=== PATIENT | female | born 1985 | race Caucasian/White ===

== ENCOUNTER 2019-06-28 10:39 | Inpatient (IN) | payer OTHER ==
--- NOTE | 2019-06-26 14:26 | HP ---
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 She has a strong family h/o breast cancer and her mother also tested positive for Palb2 mutation. Here sister was treated for a triple negative breast cancer at age 35 gene negative. Bilateral breast MRI 2018 showed area of non mass enhancement in the right lower inner quadrant 5 cm FN for which MRI core bx was recommended.This was not seen on mammogram or US. Repeat breast MRI no longer showed the enhancement. mammogram and US 03/2019 benign findings. Birad 2. History Source: Patient Limitations to Obtaining History: No Limitations - Past Medical History Endocrine: Yes: Other (PCOS) - Smoking History Smoking history: Never smoked Have you smoked in the past 12 months: No - Alcohol/Substance Use Hx Alcohol Use: Yes (2 per week) Home Medications - Allergies Allergies/Adverse Reactions: Allergies Allergy/AdvReac Type Severity Reaction Status Date / Time No Known Allergies Allergy Verified 06/26/19 14:27 - Home Medications Home Medications (free text): vitamins Family Medical History Family Hx Cancer: Grandmother (maternal) (breast ca 80), Grandmother (paternal) (melanoma), Grandfather (paternal) (prostate ca), Mother (PALB2 + no cancer), Sister (breast ca triple negative 35) Other Family History: pat GGM breast ca80. mat second cousin breast ca triple - . pat GA breast ca 70. mat uncle prostate ca 60. cousin prostate ca and one with CRC 50 Physical Examination Constitutional: Yes: Well Nourished, No Distress Breast(s): Yes: Other (mildly ptotic breasts C cup no palpable densities or adenopathy bilaterally) Problem List - Problems (1) Positive test for genetic breast cancer susceptibility marker Code(s): Z15.01 - GENETIC SUSCEPTIBILITY TO MALIGNANT NEOPLASM OF BREAST Assessment/Plan Bilateral total mastectomies retroareolar biopsies implant alloderm reconstruction
[2019-06-27 15:23] VITALS: BMI 24.4
[2019-06-28] MEDS ORDERED: SCOPOLAMINE HYDROBROMIDE 1 PATCH PATCH.TD72 ONE (12:12)
[2019-06-28] MEDS ORDERED: ceFAZolin SODIUM 1 GM VIAL ONE ×2 (12:23→13:03)
[2019-06-28] MEDS ORDERED: GENTAMICIN SO4 80 MG/2 ML VIAL ONE (12:23)
[2019-06-28] MEDS ORDERED: BUPIVACAINE LIPOSOME/PF (EXPAREL) 266 MG/20 ML VIAL ONE (12:25)
[2019-06-28] MEDS ORDERED: ONDANSETRON 4 MG/2 ML VIAL IVPUSH PRN ×2 (12:51→15:22)
[2019-06-28] MEDS ORDERED: PROMETHAZINE HCL 25 MG/1 ML VIAL IVPUSH PRN (12:51)
[2019-06-28] MEDS ORDERED: LACTATED RINGERS SOLUTION 1,000 ML IV SCH (13:00)
[2019-06-28] MEDS ORDERED: MIDAZOLAM HCL 2 MG/2 ML SINGLE DOSE VIAL ONE (13:02)
[2019-06-28] MEDS ORDERED: ROCURONIUM BROMIDE 50 MG/5 ML SYRINGE ONE ×2 (13:02→14:10)
[2019-06-28] MEDS ORDERED: PROPOFOL 20 ML ONE (13:02)
[2019-06-28] MEDS ORDERED: LIDOCAINE HCL/PF 2% SDV 5ML VIAL ONE (13:04)
[2019-06-28] MEDS ORDERED: SODIUM CHLORIDE 0.9% P/F 10 ML VIAL IJ ONE (13:18)
[2019-06-28] MEDS ORDERED: BUPIVACAINE HCL/PF 0.5% (5MG/ML) 10 ML VIAL ONE (13:18)
[2019-06-28] MEDS ORDERED: DEXAMETHASONE SOD PHOSPHATE 4 MG/1 ML VIAL ONE (13:24)
[2019-06-28] MEDS ORDERED: ONDANSETRON 4 MG/2 ML VIAL ONE ×2 (13:24→16:48)
[2019-06-28] MEDS ORDERED: BUPIVACAINE HCL/PF 0.25% (2.5MG/ML) 10 ML VIAL IJ ONE (15:00)
[2019-06-28] MEDS ORDERED: BUPIVACAINE HCL/PF 0.5% (5MG/ML) 10 ML VIAL IJ ONE (15:00)
[2019-06-28] MEDS ORDERED: BUPIVACAINE LIPOSOME/PF (EXPAREL) 266 MG/20 ML VIAL NR ONE (15:00)
[2019-06-28] MEDS ORDERED: ZOLPIDEM TARTRATE 5 MG TABLET PO PRN (15:22)
[2019-06-28] MEDS ORDERED: DEXTROSE 5%-0.45% SALINE 1,000 ML IV SCH (15:30)
[2019-06-28] MEDS ORDERED: KETOROLAC TROMETHAMINE 30 MG/1 ML VIAL ONE (15:36)
[2019-06-28] MEDS ORDERED: GLYCOPYRROLATE 0.2 MG/1 ML VIAL ONE (15:57)
[2019-06-28] MEDS ORDERED: NEOSTIGMINE METHYLSULFATE 0.5 MG/ML - 10 ML MDV ONE (15:57)
--- NOTE | 2019-06-28 16:44 | OP ---
Operative Note - Note: Operative Date: 06/28/19 Pre-Operative Diagnosis: breast cancer Operation: bilateral nipple sparing mastectomy with prepectoral reconstruction with mesh and ADM, b/l Surgeon: Derick Jean Baptiste Piece Worker: Mimi Ruiz Anesthesiologist/OPERATIONS AND MAINTENANCE SPECIALIST: Yassine Sloan Anesthesia: General Estimated Blood Loss (mls): 100 Fluid Volume Replaced (mls): 800 Operative Report Dictated: Yes
--- NOTE | 2019-06-28 16:50 | SURG ---
Surgery [employer] Farmworker Note [employer] Farmworker: Mimi Ruiz PA-C Date of Service: 06/28/19 Diagnosis: breast cancer Procedure: bilateral nipple sparing mastectomy with prepectoral reconstruction with mesh and ADM, b/l I was present for the entirety of the operative procedure. For further detail, please refer to operative report. Visit type - Case Type Case Type: Scheduled - Emergency Emergency Visit: No - New patient This patient is new to me today: Yes Date on this admission: 06/28/19
[2019-06-28] MEDS: oxyCODONE HCL 5 MG TABLET PO PRN ×4 (17:43→21:34)
[2019-06-28] MEDS: CEFAZOLIN 1 GM/D5W 1 GM/50 ML BAG IVPB SCH (21:20)
[2019-06-29] MEDS: oxyCODONE HCL 5 MG TABLET PO PRN ×4 (02:28→13:25)
[2019-06-29] MEDS: CEFAZOLIN 1 GM/D5W 1 GM/50 ML BAG IVPB SCH ×3 (03:31→15:10)
[2019-06-29] MEDS: ACETAMINOPHEN 325 MG TABLET (FP) PO PRN ×3 (05:38→13:26)
[2019-06-29 07:58] LABS: HEMATOCRIT 35.9 % (32.4-45.2); HEMOGLOBIN 12.1 GM/dl (10.7-15.3); MCH 30.6 pg (25.7-33.7); MCHC 33.7 g/dl (32.0-36.0); MEAN CELL VOLUME 90.8 fl (80-96); MEAN PLT VOLUME 9.3 fl (7.5-11.1); PLATELET COUNT 242 K/MM3 (134-434); RBC 3.96 M/mm3 (3.60-5.2); RDW 12.1 % (11.6-15.6)
--- NOTE | 2019-06-29 09:17 | PN ---
Progress Note (short form) - Note Progress Note: POD #1 bilateral nipple sparing mastectomy with prepectoral reconstruction with mesh and ADM, b/l. Patient seen and examined at bedside. Patient states she had some pain overnight which is now controlled. She has been OOB and ambulation without assistance. She is tolerating her diet and denies nay CP, SOB, N/V, fever or chills. Vital Signs Temp 99.1 F 11 05:00 Pulse 70 06/29/19 05:00 Resp 19 06/29/19 05:00 BP 100/55 L 06/29/19 05:00 Pulse Ox 99 06/29/19 08:22 Intake & Output 06/28/19 06/28/19 06/29/19 11:59 23:59 11:59 Intake Total 1500 Output Total 670 100 Balance 830 -100 Weight 125 lb Intake: IV 1000 Oral 500 Output: Drainage 170 100 Left Chest 60 60 Right Chest 60 40 Urine 400 Void 400 Estimated Blood Loss 100 Other: Voiding Method Toilet Toilet Height 5 ft Body Mass Index (BMI) 24.4 Weight Measurement Method Standing Scale CBC, BMP 06/29/19 07:21 PE: A&Ox3, NAD unlabored resp on RA Breasts, b/l flaps well perfused with mild ecchymosis L>R, nipples are pink and well perfused, incisions c/d/i with steris in place, YULIET drains x 4 in good position and draining well. Problem List - Problems (1) Positive test for genetic breast cancer susceptibility marker Assessment/Plan: POD #1 bilateral nipple sparing mastectomy with prepectoral reconstruction with mesh and ADM, patient doing well. -Emeka hugger to chest at all times when in bed. -OOB as tolerated -Encourage daily IS -surgical bra at all times -d/c planning for home Code(s): Z15.01 - GENETIC SUSCEPTIBILITY TO MALIGNANT NEOPLASM OF BREAST
[2019-06-29] MEDS ORDERED: DOCUSATE SODIUM 100 MG CAPSULE (FP) PO PRN (09:39)
[2019-06-29] MEDS ORDERED: diazePAM 5 MG TABLET PO PRN (09:39)
--- NOTE | 2019-06-29 09:44 | PN ---
Progress Note, Physician Chief Complaint: High risk breast cancer due to genetic positive mutation S/P bilateral nipple sparing mastectomies implant and cellular matrix reconstruction POD#1 History of Present Illness: patient is eating OOB , pain controlled with oxycodone , no nausea or vomiting - Current Medication List Current Medications: Active Medications Acetaminophen (Tylenol -) 650 mg PO Q4H PRN PRN Reason: FEVER Last Admin: 06/29/19 09:32 Dose: 650 mg Diazepam (Valium -) 5 mg PO BID PRN PRN Reason: MUSCLE SPASMS Docusate Sodium (Colace -) 100 mg PO BID PRN PRN Reason: CONSTIPATION Cefazolin Sodium (Ancef 1 Gm Premixed Ivpb -) 1 gm in 50 mls @ 100 mls/hr IVPB Q6H-IV DOT Stop: 07/05/19 20:59 Last Admin: 06/29/19 09:30 Dose: 100 mls/hr Dextrose/Sodium Chloride (D5-1/2ns -) 1,000 mls @ 100 mls/hr IV ASDIR DOT Last Admin: 06/28/19 18:02 Dose: 100 mls/hr Non-Formulary Medication (Dextroamphetamine/Amphetamine [Adderall 12.5 Mg Tablet ]) 12.5 mg PO DAILY DOT Ondansetron HCl (Zofran Injection) 4 mg IVPUSH Q6H PRN PRN Reason: NAUSEA AND/OR VOMITING Oxycodone HCl (Roxicodone -) 5 mg PO Q4H PRN PRN Reason: PAIN LEVEL 1-5 Last Admin: 06/28/19 21:34 Dose: 5 mg Oxycodone HCl (Roxicodone -) 10 mg PO Q4H PRN PRN Reason: PAIN LEVEL 6-10 Last Admin: 06/29/19 09:31 Dose: 10 mg Zolpidem Tartrate (Ambien -) 5 mg PO HS PRN PRN Reason: Insomnia - Objective Vital Signs: Vital Signs Temperature 99.1 F 06/29/19 05:00 Pulse Rate 70 06/29/19 05:00 Respiratory Rate 19 06/29/19 05:00 Blood Pressure 100/55 L 06/29/19 05:00 O2 Sat by Pulse Oximetry (%) 99 06/29/19 08:22 Constitutional: Yes: No Distress Breast(s): Yes: Other (Bilateral flaps viable left>echymosis than right , nipples viable right slightly darker, incisions intact YULIET drains functioning) Labs: CBC, BMP 06/29/19 07:21 Problem List - Problems (1) Positive test for genetic breast cancer susceptibility marker Code(s): Z15.01 - GENETIC SUSCEPTIBILITY TO MALIGNANT NEOPLASM OF BREAST Assessment/Plan IV antibiotics Oxycodone PRN Valium prn OOb YULIET drain instruction spirometry Merry Garcia
[2019-06-29 14:12] VITALS: BP 106/66; PULSE 84; TEMP 98.8
--- NOTE | 2019-07-01 13:39 | OP ---
DATE OF OPERATION: 06/28/2019 SURGEON: Debra Jean Baptiste MD SURGEON CHEMICAL DEPENDENCY ATTENDANT: SRI Summers NOTE: This is a combined dictation with Dr. Debra Hawthorne for bilateral implant and AlloDerm reconstruction. PREOPERATIVE DIAGNOSES: 1. Bilateral acquired chest wall deformity status post bilateral mastectomy (611.89). 2. Personal history of genetic carcinoma. POSTOPERATIVE DIAGNOSES: 1. Bilateral acquired chest wall deformity status post bilateral mastectomy (611.89). 2. Personal history of genetic carcinoma. PROCEDURE: 1. Right immediate breast reconstruction utilizing immediate insertion of silicone breast implant and AlloDerm reconstruction. 2. Left immediate breast reconstruction utilizing immediate insertion of silicone breast implant and AlloDerm reconstruction. 3. Intravenous injection of indocyanine green dye and intraoperative diagnostic evaluation of non-coronary intraoperative fluorescein vascular angiography x 2. ANESTHESIA: General. OPERATIVE PROCEDURE IN DETAIL: The patient was taken to the operating room. After induction of general anesthesia in the supine position, both arms were extended and padded. Venodyne boots were placed. The entire chest wall was painted with ChloraPrep solution over its entire extent, and sterile drapes were placed in the usual fashion. The markings, which had been made in the standing position preoperatively, were reoutlined with the patient's knowledge. Time-out procedure was performed. Attention was turned by Dr. Hawthorne to the mastectomies. Bilateral inframammary incisions were made and Dr. Hawthorne performed mastectomies. This will be dictated under separate cover. Upon completion of the mastectomies, the wounds were copiously irrigated and attention was turned to the right breast. A subpectoral dissection was begun on the right breast, superiorly from the second rib, medially to the sternal fibers, and down to the inframammary fold, elevating the pectoralis major muscle from its insertion. At this point, an 8.0 x 16.0 sheet of AlloDerm was brought into the field and sutured superiorly along the pectoralis major muscle after rehydration. This was carried along the lateral mammary fold and down the side of the breast reconstruction. At this point, a Cortiva 1 mm allograft dermis 16 x 20 cm placed bilaterally with ProGrip mesh. An implant was chosen. The patient had a prepectoral reconstruction with Sientra style 107, 470 mL, high-profile, smooth, round implants placed bilaterally. The left breast tissue removed was 222 gm, and the right breast approximately 223 gm. This implant was placed and then sutured with 3-0 Vicryl suture continued along the inframammary fold, completely covering the implant itself. The exact same procedure was carried out symmetrically on the opposite breast, also placing a Sientra style 107, 470 mL, high-profile, smooth round implant in the same subpectoral pocket. Good symmetry was seen in the sitting position. After the implants were in place, the patient was injected with 10 mL of indocyanine green dye and the Spy imaging system was brought into the field. The skin flowed to the right and left breasts and the nipple areolar complex, and the entire skin flaps were evaluated and seen to be viable with good blood flow. The Spy intraoperative angiogram showed good blood flow to both breasts. Two Jose drains were brought out through separate stab wounds laterally. The Smart Infuser pump catheter was inserted medially and into the subpectoral position. Both wounds were closed symmetrically using 3-0 PDS suture on the deep tissue, 3-0 in a deep dermal fashion, and 4-0 in a subcuticular fashion. Both wounds were dressed sterilely with Mastisol and Steri-Strips with a surgical bra and a compression strap. The patient tolerated the procedure well. She was awakened, extubated and transferred to the recovery room in satisfactory condition. The assistant professor of education was present during the entire portion of the operation and closure. DEBRA JEAN BAPTISTE M.D. [id number]
--- NOTE | 2019-07-02 16:00 | PATH ---
Surgical Pathology Report Patient Name: CRUZ CONRAD Med. Rec. #: [id number] /Age/Gender: 1985 (Age: 33) / F Account: [id number] [facility] Taken: 06/28/2019 Received: 06/28/2019 Reported: 07/02/2019 Physicians: Pedrito Hawthorne M.D. Specimen(s) Received A: RIGHT BREAST RETROAREOLLAR BIOPSY (FS) B: LEFT BREAST RETROAREOLLAR BIOPSY (FS) C: RIGHT BREAST MASTECTOMY D: LEFT BREAST MASTECTOMY Clinical History Genetic susceptibility Intraoperative Consult Diagnosis A. Right breast retroareolar biopsy, frozen section: Negative for malignancy. B. Left breast retroareolar biopsy, frozen section: Negative for malignancy. Alexa Santana 06/28/19 Final Diagnosis A. BREAST, RIGHT, RETROAREOLAR BIOPSY (FS): BENIGN BREAST TISSUE; NEGATIVE FOR MALIGNANCY. B. BREAST, LEFT, RETROAREOLAR BIOPSY (FS): BENIGN BREAST TISSUE; NEGATIVE FOR MALIGNANCY. C. BREAST, RIGHT, NIPPLE-SPARING MASTECTOMY: BENIGN BREAST TISSUE SHOWING SECRETORY CHANGE, SMALL FIBROADENOMA AND FIBROCYSTIC CHANGES INCLUDING MICROCYSTS WITH APOCRINE METAPLASIA AND STROMAL FIBROSIS. D. BREAST, LEFT, NIPPLE-SPARING MASTECTOMY: BENIGN BREAST TISSUE SHOWING FIBROCYSTIC CHANGES INCLUDING MICROCYST FORMATION AND STROMAL FIBROSIS. Electronically Signed Jessica Campos M.D. Gross Description A. Received fresh for frozen section evaluation, labeled, "right breast retroareolar biopsy" is a 0.8 x 0.4 x 0.2 cm portion of red and pink-rahman soft tissue. Frozen section is performed on the specimen. The frozen section residue is entirely submitted in one cassette. B. Received fresh for frozen section evaluation, labeled, "left breast retroareolar biopsy" is a 1.2 x 0.5 x 0.3 cm portion of red and pink-rahman soft tissue. Frozen section is performed on the specimen. The frozen section residue is entirely submitted in one cassette. C. Received in formalin, labeled "right breast mastectomy," is a 230 gram, 11.0 x 11.0 x 3.5 cm. right mastectomy specimen with a short suture marking the superior aspect and a long suture marking the lateral aspect of the specimen, per the surgeon. There is no skin or nipple present. The deep margin is inked green and the anterior soft tissue margin is inked red. The specimen is serially sectioned from lateral to medial. Sectioning reveals abundant dense, white, focally firm fibrous tissue. Fire Apparatus Sprinkler Inspector sections are submitted in 14 cassettes as follows: 1-3-upper outer quadrant; 4-6-lower outer quadrant; 7-9-upper inner quadrant; 10-12-lower inner quadrant; 13-anterior soft tissue margin; 14-deep margin. D. Received in formalin, labeled "left breast mastectomy," is a 233 gram, 14.0 x 11.5 x 3.5 cm. left mastectomy specimen with a short suture marking the superior aspect and a long suture marking the lateral aspect of the specimen, per the surgeon. There is no skin or nipple present. The deep margin is inked green and the anterior soft tissue margin is inked red. The specimen is serially sectioned from medial to lateral. Sectioning reveals abundant dense, white, focally firm fibrous tissue. Fire Apparatus Sprinkler Inspector sections are submitted in 14 cassettes as follows: 1-3-upper outer quadrant; 4-6-lower outer quadrant; 7-9-upper inner quadrant; 10-12-lower inner quadrant; 13-anterior soft tissue margin; 14-deep margin. Time to formalin fixation: 20 minutes Total formalin fixation time: Approximately 27 hours. AE/06/28/2019 ebram/06/28/2019
== END 2019-06-29 15:03 | disposition home or self-care (01) | DRG 585 ==
LOC: FM/S 11:14
PROVIDERS: ADMIT Surgery Surgical Oncology; ATTEND Surgery Surgical Oncology
PROC: 4A1GXSH Monitoring of Skin and Breast Vascular Perfusion using Indocyanine Green Dye, External Approach (ICD-10-PCS; 2019-06-28)
PROC: 0HTV0ZZ Resection of Bilateral Breast, Open Approach (ICD-10-PCS; principal; 2019-06-28 13:44)
PROC: 0HUV0JZ Supplement Bilateral Breast with Synthetic Substitute, Open Approach (ICD-10-PCS; 2019-06-28 13:44)
DX: Z40.01 Encounter for prophylactic removal of breast (principal); Z15.01 Genetic susceptibility to malignant neoplasm of breast; Z80.3 Family history of malignant neoplasm of breast; M95.4 Acquired deformity of chest and rib
CPT/HCPCS: 36415; 84703; 85027; 88305-TC; 88307-TC; 88331-TC; 94760

== ENCOUNTER 2021-05-28 09:07 | Day surgery (SDC) | payer OTHER ==
[2021-05-25 14:58] VITALS: BMI 25.4
[2021-05-28] MEDS ORDERED: LIDOCAINE HCL 1%, 10 MG/ML (20ML VIAL) ONE (10:55)
[2021-05-28] MEDS ORDERED: LIDOCAINE HCL/PF 2% SDV 5ML VIAL ONE (11:22)
[2021-05-28] MEDS ORDERED: ROCURONIUM BROMIDE 50 MG/5 ML SYRINGE ONE (11:22)
[2021-05-28] MEDS ORDERED: MIDAZOLAM HCL 2 MG/2 ML SINGLE DOSE VIAL ONE (11:22)
[2021-05-28] MEDS ORDERED: PROPOFOL 20 ML ONE (11:22)
[2021-05-28] MEDS ORDERED: ceFAZolin SODIUM 1 GM VIAL ONE (11:25)
[2021-05-28] MEDS ORDERED: LIDOCAINE 1%/EPI 1:100000 (20 ML MULTI DOSE VIAL) ONE (11:59)
[2021-05-28] MEDS ORDERED: DEXAMETHASONE SOD PHOSPHATE 4 MG/1 ML VIAL ONE (12:51)
[2021-05-28] MEDS ORDERED: NEOSTIGMINE METHYLSULFATE 0.5 MG/1 ML - 10 ML MDV ONE (12:51)
[2021-05-28] MEDS ORDERED: ONDANSETRON 4 MG/2 ML VIAL ONE ×2 (12:51→13:50)
[2021-05-28] MEDS ORDERED: GLYCOPYRROLATE 0.2 MG/1 ML VIAL ONE (12:51)
[2021-05-28] MEDS ORDERED: BACITRACIN 15 GM TUBE TOPICAL OINTMENT ONE (13:08)
[2021-05-28] MEDS ORDERED: oxyCODONE HCL 5 MG TABLET PO PRN (13:44)
[2021-05-28] MEDS ORDERED: ONDANSETRON 4 MG/2 ML VIAL IVPUSH PRN (13:44)
[2021-05-28] MEDS ORDERED: LACTATED RINGERS SOLUTION 1,000 ML IV SCH (13:45)
[2021-05-28] MEDS ORDERED: ACETAMINOPHEN 1000 MG/100 ML VIAL IVPB ONE (14:00)
[2021-05-28] MEDS ORDERED: ACETAMINOPHEN INJECTION 100 ML IVPB ONE (14:10)
[2021-05-28] MEDS ORDERED: PROMETHAZINE HCL 25 MG/1 ML VIAL ONE (15:09)
[2021-05-28] MEDS ORDERED: PROMETHAZINE HCL 25 MG/1 ML VIAL IVPB PRN (15:15)
[2021-05-28 15:55] VITALS: BP 101/50; PULSE 84; TEMP 97.7
== END 2021-05-28 15:56 | disposition home or self-care (01) ==
LOC: FASU 09:07
PROVIDERS: ATTEND Plastic Surgery
PROC: 0HNV0ZZ Release Bilateral Breast, Open Approach (ICD-10-PCS; principal; 2021-05-28 12:06)
PROC: 0HRV37Z Replacement of Bilateral Breast with Autologous Tissue Substitute, Percutaneous Approach (ICD-10-PCS; 2021-05-28 12:06)
DX: M95.4 Acquired deformity of chest and rib (principal); Z90.13 Acquired absence of bilateral breasts and nipples; N65.1 Disproportion of reconstructed breast; Z15.01 Genetic susceptibility to malignant neoplasm of breast; T85.42XA Displacement of breast prosthesis and implant, initial encounter; Y82.8 Other medical devices associated with adverse incidents; Y92.9 Unspecified place or not applicable
CPT/HCPCS: 19342; 19370; 19380; L8600; 84703; 88300-TC; 94760; J0131